=== PATIENT | female | born 2000 | race Caucasian/White ===

== ENCOUNTER 2021-10-07 00:38 | Emergency (ER) | payer OTHER ==
[~2021-10-07] VITALS: Ht 154.9 cm; Wt 49.9 kg
== END 2021-10-07 10:03 | disposition home or self-care (01) ==
LOC: ER 00:38
DX: J10.1 Influenza due to other identified influenza virus with other respiratory manifestations (principal); K52.9 Noninfective gastroenteritis and colitis, unspecified; R50.9 Fever, unspecified; R11.10 Vomiting, unspecified; Z20.822 Contact with and (suspected) exposure to COVID-19